=== PATIENT | female | born 1955 | race Caucasian/White ===

== ENCOUNTER 2019-04-14 05:48 | Inpatient (IN) | payer MEDICARE ==
[2019-04-07 16:31] LABS: BASOPHILS # (AUTO) 0.1 X10'3 (0-0.2); EOSINOPHILS # (AUTO) 0.2 X10'3 (0-0.9); EOSINOPHILS % (AUTO) 3.3 % (0-6); LYMPHOCYTES # (AUTO) 1.9 X10'3 (1.1-4.8); LYMPHOCYTES % (AUTO) 33.8 % (21-51); MEAN CORPUSCULAR HEMOGLOBIN 32.8 PG (27.0-31.0); MEAN CORPUSCULAR HGB CONC 34.3 g/dL (33.0-36.5); MEAN CORPUSCULAR VOLUME 95.7 FL (78-98); MEAN PLATELET VOLUME 9.1 FL (7.4-10.4); MONOCYTES # (AUTO) 0.4 X10'3 (0-0.9); MONOCYTES % (AUTO) 7.7 % (2-12); NEUTROPHILS # (AUTO) 3.1 X10'3 (1.8-7.7); NEUTROPHILS % (AUTO) 54.2 % (42-75); PRE OP HEMATOCRIT 37.2 % (35.0-45.0); PRE OP HEMOGLOBIN 12.7 g/dL (12.0-16.0); PRE OP PLATELET COUNT 326 X10'3 (140-440); RED BLOOD COUNT 3.88 X10'6 (4.20-5.60); RED CELL DISTRIBUTION WIDTH 13.5 % (11.5-14.5)
[2019-04-07 16:39] LABS: PRE OP INR 0.9 INR
[2019-04-07 17:00] LABS: ALBUMIN 4.4 G/DL (3.4-5.0); ALKALINE PHOSPHATASE 56 IU/L (46-116); BLOOD UREA NITROGEN 24 MG/DL (7-18); CALCIUM 9.9 MG/DL (8.5-10.1); CHLORIDE 102 MMOL/L (99-107); CREATININE 0.75 MG/DL (0.40-0.90); PRE OP ALT 30 U/L (30-65); PRE OP ANION GAP 9 (8-16); PRE OP AST 25 U/L (10-37); PRE OP BILIRUB, TOTAL 0.5 MG/DL (0.0-1.0); PRE OP GLUCOSE 98 MG/DL (70-104); PRE OP POTASSIUM 3.4 MMOL/L (3.4-5.1); PRE OP SODIUM 142 MMOL/L (135-145); TOTAL CARBON DIOXIDE 31.4 MMOL/L (24-32); TOTAL PROTEIN 8.6 G/DL (6.4-8.2); eGFR 77 ML/MIN
[2019-04-14] VITALS (18 sets, daily range): BP systolic 91–153; BP diastolic 48–88
[~2019-04-14] VITALS: Ht 154.9 cm; Wt 55.4 kg
[~2019-04-14 05:48] MED LIST: ENAL20TA PO; HYDR-3972 PO; HYDR25TA4 PO; VANCOMYCIN INJ 1000 MG in NORMAL SALINE 250ml IV.SOLN IV ONE; acetaminophen 325mg tablet PO ONE; cefazolin/dext.iso 2gm/50ml 100 ML IV ONE; celeCOXIB 100mg capsule PO ONE; famotidine 20mg tablet PO ONE; gabapentin 300mg capsule PO ONE; metoclopramide 5 mg/ml inj IV ONE; oxyCODONE SR 10mg (sust. release) tab -2 tabs (20mg) PO ONE; ringers solution, lacted 1,000 ML IV SCH; tranexamic acid inj. 1,000 MG in normal saline 100 ML IV ONE
[2019-04-14] MEDS ORDERED: oxyCODONE/APAP 5-325mg tablet PO PRN (06:20)
[2019-04-14] MEDS ORDERED: vancomycin 1,000mg inj ONE ×3 (06:49→09:46)
[2019-04-14] MEDS ORDERED: epiNEPHrine 1 mg/ml inj ONE (06:49)
[2019-04-14] MEDS ORDERED: ROPIVAcaine 0.5% (5mg/ml) 30ml vial ONE ×3 (06:50→09:20)
[2019-04-14] MEDS ORDERED: ketorolac trometh. 30mg/ml inj. ONE (06:50)
[2019-04-14] MEDS ORDERED: LIDOcaine 1% (10mg/ml) 2ml vial ONE (07:00)
[2019-04-14] MEDS ORDERED: morphine 4 MG/ML inj SYRINge IV PRN ×2 (07:35)
[2019-04-14] MEDS ORDERED: ringers solution, lacted 1,000 ML IV SCH (07:35)
[2019-04-14] MEDS ORDERED: fentaNYL/PF 50MCG/1 ML 2ML syringe IV PRN ×2 (07:35)
[2019-04-14] MEDS ORDERED: ondansetron/PF 4mg/2ml inj IV PRN ×2 (07:35→07:40)
[2019-04-14] MEDS ORDERED: hydrALAZINE 20mg/ml inj. IV PRN (07:35)
[2019-04-14] MEDS ORDERED: labetalol 20mg/4ml (5mg/ml) syringe IV PRN (07:35)
[2019-04-14] MEDS ORDERED: tetracaine 1% (10mg/ml) pres. free inj. ONE (07:39)
[2019-04-14] MEDS ORDERED: diphenhydrAMINE 50 mg/ml inj IV PRN (07:40)
[2019-04-14] MEDS ORDERED: fentaNYL/PF 50MCG/1 ML 2ML syringe ONE (07:40)
[2019-04-14] MEDS ORDERED: MIDAZolam 1mg/ml 10ml vial ONE (07:40)
[2019-04-14] MEDS ORDERED: morphine /PF 1mg/ml 10ml inj. ONE (07:40)
[2019-04-14] MEDS ORDERED: ROPIVAcaine 0.2%/PF PAIN PUMP 550 ML IJ SCH (08:30)
[2019-04-14] MEDS ORDERED: propofol inj 20 ML IV ONE (08:55)
[2019-04-14] MEDS ORDERED: LIDOcaine 2% (20mg/ml) 5ml vial ONE (08:55)
[2019-04-14] MEDS ORDERED: cloNIDine hcl/PF 100mcg/ml inj ONE (09:17)
[2019-04-14] MEDS ORDERED: dexamethasone sod phosphate 4mg/ml inj. ONE (09:20)
--- NOTE | 2019-04-14 10:50 | NUR ---
Received from OR via BED , accompanied by Anesthesiologist and report given by Anesthesiolgist. PATIENT WAKING UP, DENIES PAIN, V/S WNL, NEUROVASCULAR CHECKS INTACT, 20G PIV LUE , WALTER DRESSING TO RIGHT KNEE CDI W/ COLD POWDER PACK AND W/ SCD ON AND ON QUE BALL TO RIGHT KNEE. . F/C DRAINING CLEAR YELLOW URINE. SENSATION T-11.
--- NOTE | 2019-04-14 11:30 | NUR ---
received pt. to room 4023B. alert and oriented to the room. Denies pain gave her the call light and some ice chips.
--- NOTE | 2019-04-14 11:40 | NUR ---
PATIENT A&OX4, DENIES PAIN, V/S WNL, NEUROVASCULAR CHECKS INTACT, 18G PIV LUE , WALTER DRESSING TO RIGHT KNEE CDI W/ COLD POWDER PACK AND ON QUE BALL W/ SCD ON. F/C DRAINING CLEAR YELLOW URINE. SENSATION T-11. PATIENT TAKEN TO 4023B WITH ALL BELONGINGS AND HOOKED UP TO MONITORS IN ROOM AND REPORT GIVEN TO MERCHANDISE EXAMINER WHO HAS TAKEN OVER PATIENT CARE.
[2019-04-14] MEDS ORDERED: ROPIVAcaine 0.2%/PF PAIN PUMP 550 ML ADDCANAL SCH ×2 (12:22→13:39)
[2019-04-14] MEDS ORDERED: HYDROmorphone 1 mg/ml syringe IV PRN (13:00)
[2019-04-14] MEDS: gabapentin 300mg capsule PO SCH ×2 (13:12→20:04)
[2019-04-14] MEDS: potassium cl 20mEq in 1/2 NS 1,000 ML IV SCH (13:14)
[2019-04-14] MEDS ORDERED: bisacodyl 10mg suppository rectal RC PRN (14:00)
[2019-04-14] MEDS ORDERED: potassium cl 20mEq in 1/2 NS 1,000 ML IV SCH (14:00)
[2019-04-14] MEDS ORDERED: acetaminophen 325mg tablet PO PRN (14:00)
[2019-04-14] MEDS ORDERED: magnesium hydroxide 30ml (MOM) UD suspension PO PRN (14:00)
[2019-04-14] MEDS ORDERED: HYDROmorphone inj. 0.5 MG/0.5 ML DISP.SYRIN IV PRN (14:00)
[2019-04-14] MEDS ORDERED: NORMAL SALINE IV ONE (15:00)
[2019-04-14] MEDS ORDERED: TRANEXAMIC ACID IV ONE (15:00)
[2019-04-14] MEDS ORDERED: diphenhydrAMINE 25mg capsule PO PRN ×2 (16:00→18:00)
[2019-04-14] MEDS: ceFAZolin 1GM/D5W- ADD-VANTAGE 50 ML IV SCH (17:13)
[2019-04-14] MEDS: ondansetron/PF 4mg/2ml inj IV PRN (17:42)
--- NOTE | 2019-04-14 18:40 | NUR ---
Patient in room ORTHO 4023. I have received report from FRIEDA HENRIQUEZ and had the opportunity to ask questions and assume patient care.
[2019-04-14] MEDS ORDERED: vancomycin/NS 1 GM ADD-VANTAGE 250 ML IV SCH (20:00)
[2019-04-14] MEDS: ascorbic acid 500mg tablet PO SCH (20:00)
[2019-04-14] MEDS ORDERED: sennosides 8.6mg tablet PO SCH (21:00)
[2019-04-15] MEDS: potassium cl 20mEq in 1/2 NS 1,000 ML IV SCH (00:16)
[2019-04-15] MEDS: ceFAZolin 1GM/D5W- ADD-VANTAGE 50 ML IV SCH (00:16)
[2019-04-15 02:00] VITALS: BP 115/56
[2019-04-15] MEDS: ondansetron/PF 4mg/2ml inj IV PRN (04:48)
[2019-04-15] MEDS: oxyCODONE/APAP 5-325mg tablet PO PRN ×2 (04:57→12:20)
[2019-04-15 06:00] VITALS: BP 117/56
[2019-04-15 06:00] LABS: BASOPHILS % (AUTO) 0.4 % (0-1); EOSINOPHILS % (AUTO) 0.3 % (0-6); HEMATOCRIT 28.5 % (35.0-45.0); HEMOGLOBIN 9.7 g/dl (12.0-16.0); LYMPHOCYTES # (AUTO) 1.4 X10'3 (1.1-4.8); LYMPHOCYTES % (AUTO) 17.3 % (21-51); MEAN CORPUSCULAR HEMOGLOBIN 32.8 PG (27.0-31.0); MEAN CORPUSCULAR HGB CONC 34.2 g/dL (33.0-36.5); MEAN PLATELET VOLUME 9.2 FL (7.4-10.4); MONOCYTES # (AUTO) 0.6 X10'3 (0-0.9); MONOCYTES % (AUTO) 7.7 % (2-12); NEUTROPHILS % (AUTO) 74.3 % (42-75); PLATELET COUNT 231 X10'3 (140-440); RED BLOOD COUNT 2.97 X10'6 (4.20-5.60); RED CELL DISTRIBUTION WIDTH 13.2 % (11.5-14.5); WHITE BLOOD COUNT 8.1 X10'3 (4.5-11.0)
--- NOTE | 2019-04-15 06:00 | NUR ---
Patient in room ORTHO 4023. I have received report from NATALIYA MALAVE and had the opportunity to ask questions and assume patient care.
--- NOTE | 2019-04-15 06:39 | NUR ---
Problems reprioritized. Patient report given, questions answered & plan of care reviewed with FRIEDA SANTOYO.
[2019-04-15 07:48] LABS: ANION GAP 6 (8-16); CHLORIDE 103 MMOL/L (99-107); POTASSIUM 3.4 MMOL/L (3.5-5.1); SODIUM 136 MMOL/L (135-145); TOTAL CARBON DIOXIDE 26.6 MMOL/L (24-32)
[2019-04-15] MEDS ORDERED: lisinopril 20mg tablet PO SCH (08:00)
[2019-04-15] MEDS ORDERED: multivitamins, therapeutics tablet PO SCH (08:00)
[2019-04-15] MEDS ORDERED: HYDROchlorothiazide 25mg tablet PO SCH (08:00)
[2019-04-15] MEDS ORDERED: aspirin 325mg tablet PO SCH (08:30)
[2019-04-15] MEDS: ascorbic acid 500mg tablet PO SCH (08:46)
[2019-04-15] MEDS: gabapentin 300mg capsule PO SCH ×2 (08:48→12:21)
[2019-04-15 09:57] VITALS: BP 137/38
--- NOTE | 2019-04-15 11:00 | NUR ---
Student documentation: I have reviewed and agree with all interventions, assessments performed and documented by Rufino MALAVE.
--- NOTE | 2019-04-15 11:45 | NUR ---
Student documentation: I have reviewed all interventions, assessments performed and documented by [facility]. Student Medication Administration: For this medication-pass time frame, all medication were reviewed, dispensed, administered and documented per hospital policy by [facility].
[2019-04-15] MEDS ORDERED: celeCOXIB 100mg capsule PO SCH (20:00)
== END 2019-04-15 12:25 | disposition home or self-care (01) | DRG 470 ==
LOC: PAS IN 05:48 → ORTHO 4S 11:57 → EDSTATUS 14:30
PROVIDERS: ADMIT Orthopaedic Surgery; ATTEND Orthopaedic Surgery
PROC: 3E0T3BZ Introduction of Anesthetic Agent into Peripheral Nerves and Plexi, Percutaneous Approach (ICD-10-PCS; 2019-04-14)
PROC: 0SRC0J9 Replacement of Right Knee Joint with Synthetic Substitute, Cemented, Open Approach (ICD-10-PCS; principal; 2019-04-14 08:39)
DX: M17.11 Unilateral primary osteoarthritis, right knee (principal); D62 Acute posthemorrhagic anemia; I10 Essential (primary) hypertension; M25.761 Osteophyte, right knee; Z88.2 Allergy status to sulfonamides; Z88.7 Allergy status to serum and vaccine; Z88.8 Allergy status to other drugs, medicaments and biological substances; Z87.891 Personal history of nicotine dependence
CPT/HCPCS: 36415; 71046; 73560; 80051; 80053; 82948; 85025; 85610; 85730; 86885; 86900; 86901; 87081; 97110; 97116; 97162; 97530; A4215; A6449; A6454; A7000; C1713; C1758; C1776; G0378; J0171; J0690; J0735; J1100; J1885; J2001; J2250; J2270; J2405; J2704; J2765; J2795; J3010; J3370; J3480; J7120